=== PATIENT | female | born 1990 | race Caucasian/White ===

== ENCOUNTER 2020-06-01 09:39 | Inpatient (IN) | payer OTHER ==
[2020-06-01 10:32] LABS: BILIRUBIN NEGATIVE (NEGATIVE); BLOOD 2+ Ery/uL (NEGATIVE); CLARITY CLEAR (CLEAR); COLOR YELLOW (YELLOW); GLUCOSE (U) NORMAL (NORMAL); LEUKOCYTES NEGATIVE Leu/uL (NEGATIVE); NITRITE NEGATIVE (NEGATIVE); PROTEIN NEGATIVE (NEGATIVE); UROBILINOGEN 0.2 mg/dL (0.2-1.0)
[2020-06-01 11:03] LABS: BACTERIA TRACE; URINARY RBC RARE
[2020-06-01 11:04] LABS: SQUAMOUS EPITHELIAL CELLS RARE
[2020-06-01 11:32] LABS: HCT 36.5 % (37.0-47.0); HGB 12.3 g/dl (12.5-16.0); MCH 31.2 pg (25.0-31.0); MCHC 33.7 g/dL (32.0-36.0); MCV 92.6 fL (78.0-100.0); MPV 10.5 fL (6.0-9.5); RBC 3.94 M/uL (4.20-5.40); RDW 13.2 % (11.5-14.0)
[2020-06-02 05:59] LABS: HCT 32.3 % (37.0-47.0); HGB 10.7 g/dl (12.5-16.0); MCH 30.9 pg (25.0-31.0); MCHC 33.1 g/dL (32.0-36.0); MCV 93.4 fL (78.0-100.0); MPV 10.5 fL (6.0-9.5); RBC 3.46 M/uL (4.20-5.40); RDW 13.1 % (11.5-14.0); WBC 15.2 K/uL (4.0-10.5)
== END 2020-06-03 13:30 | disposition home or self-care (01) | DRG 806 ==
LOC: FOB 09:39 → FOD 10:52 → FOB 10:53
PROVIDERS: ADMIT Obstetrics & Gynecology
PROC: 10E0XZZ Delivery of Products of Conception, External Approach (ICD-10-PCS; principal; 2020-06-01)
PROC: 0KQM0ZZ Repair Perineum Muscle, Open Approach (ICD-10-PCS; 2020-06-01)
PROC: 4A1HX4Z Monitoring of Products of Conception, Cardiac Electrical Activity, External Approach (ICD-10-PCS; 2020-06-01)
DX: O26.893 Other specified pregnancy related conditions, third trimester (principal); D62 Acute posthemorrhagic anemia; Z37.0 Single live birth; O70.1 Second degree perineal laceration during delivery; Z3A.40 40 weeks gestation of pregnancy; Z67.11 Type A blood, Rh negative; O99.03 Anemia complicating the puerperium; D50.9 Iron deficiency anemia, unspecified; Z20.822 Contact with and (suspected) exposure to COVID-19; Z79.899 Other long term (current) drug therapy
CPT/HCPCS: 36415; 81001; 84112; J7120; U0002